=== PATIENT | female | born 1945 | race Caucasian/White ===

== ENCOUNTER → 2017-01-14 | Outpatient (CLI) | payer MEDICARE, OTHER ==
--- NOTE | 2017-01-14 12:53 | RAD ---
EXAM: Left lower extremity venous Doppler. HISTORY: Left lower extremity pain/swelling. COMPARISON: None. FINDINGS: Grayscale and Doppler analysis of the left lower extremity deep venous system was performed with graded compression and augmentation. The common femoral, greater saphenous, superficial femoral, popliteal and calf veins were assessed. There is no evidence of deep venous thrombosis. IMPRESSION: 1. No evidence of deep venous thrombosis.
--- NOTE | 2017-01-14 14:18 | RAD ---
EXAM: Left knee, 2 views HISTORY: Left knee pain. COMPARISON: None. FINDINGS: No fractures are identified. Nonuniform joint space narrowing and osteophytosis indicate moderate to severe medial compartment predominant tricompartmental osteoarthritis. The medial and patellofemoral compartmental joint spaces are mostly effaced. There are small loose bodies within the superomedial gutter measuring up to 4 mm. Osteopenia is at least mild. Alignment is normal. There is a small joint effusion. IMPRESSION: 1. Moderate to severe medial and patellofemoral compartmental predominant osteoarthritis.
== END | disposition home or self-care (01) ==
LOC: LAB 10:29
PROVIDERS: ATTEND Nurse Practitioner Family
DX: M17.12 Unilateral primary osteoarthritis, left knee (principal); M85.88 Other specified disorders of bone density and structure, other site; M79.89 Other specified soft tissue disorders
CPT/HCPCS: 73560; 93971

== ENCOUNTER → 2017-01-25 | Outpatient (CLI) | payer MEDICARE, OTHER ==
--- NOTE | 2017-01-25 10:43 | RAD ---
EXAM: Dual energy x-ray absorptiometry (DEXA). HISTORY: Post menopausal screening. TECHNIQUE: Dual energy x-ray absorptiometry of the lumbar spine and the right hip was performed. Calculation of bone mineral density based on standard deviations above or below the expected young adult normal value (T-score) was completed. FINDINGS: The average bone mineral density associated with L1-L4 is 1.156 g/cm^2, corresponding with a T-score of -0.2. The average total bone mineral density associated with the right hip is 0.766 g/cm^2, corresponding with a T-score of -1.6. No comparison examinations are available. IMPRESSION: 1. Osteopenia. Fracture risk is increased. Note: Definitions established by the World Health Organization: 1. Normal: T-score is -1.0 or above the expected mean for a young adult. 2. Osteopenia: T-score is between -1.0 and -2.5. 3. Osteoporosis: T-score is -2.5 or below.
== END | disposition home or self-care (01) ==
LOC: DXRAD 09:49
PROVIDERS: ATTEND Nurse Practitioner Family
DX: M85.88 Other specified disorders of bone density and structure, other site (principal); Z78.0 Asymptomatic menopausal state
CPT/HCPCS: 77080

== ENCOUNTER → 2017-09-21 | Outpatient (CLI) | payer MEDICARE, OTHER ==
[2017-09-21 16:17] LABS: BASO % 1 % (0-3); EOS # 0.3 x10^3/uL (0.0-0.7); EOS % 6 % (0-3); HEMATOCRIT 42.8 % (36.0-47.0); HEMOGLOBIN 14.4 g/dL (12.0-15.5); LYMPH % 18 % (24-48); MEAN CORPUSCULAR HEMOGLOBIN 31 pg (25-35); MEAN CORPUSCULAR HGB CONC 34 g/dL (31-37); MEAN CORPUSCULAR VOLUME 93 fL (79-100); MONO # 0.5 x10^3/uL (0.0-1.1); MONO % 10 % (0-9); NEUT # 3.4 x10^3uL (1.8-7.7); NEUT % 65 % (31-73); PLATELET COUNT 245 x10^3/uL (140-400); RED BLOOD COUNT 4.62 x10^6/uL (3.50-5.40); RED CELL DISTRIBUTION WIDTH 14.9 % (11.5-14.5); WHITE BLOOD COUNT 5.2 x10^3/uL (4.0-11.0)
[2017-09-21 16:29] LABS: ALBUMIN 3.5 g/dL (3.4-5.0); ALBUMIN/GLOBULIN RATIO 1.1 (1.0-1.7); CALCIUM 9.8 mg/dL (8.5-10.1); GFR 54.7; POTASSIUM 3.6 mmol/L (3.5-5.1); TOTAL BILIRUBIN 0.5 mg/dL (0.2-1.0); TOTAL PROTEIN 6.7 g/dL (6.4-8.2)
== END | disposition home or self-care (01) ==
LOC: LAB 15:47
PROVIDERS: ATTEND Nurse Practitioner
DX: I48.91 Unspecified atrial fibrillation (principal)
CPT/HCPCS: 36415; 80053; 83735; 84436; 84443; 85025

== ENCOUNTER → 2019-08-07 | Outpatient (CLI) | payer MEDICARE, OTHER ==
--- NOTE | 2019-08-07 13:55 | RAD ---
WRIST 3V RIGHT 08/07/2019 12:00 AM INDICATION: Wrist pain COMPARISON: None available. TECHNIQUE: 3 views of the right wrist are provided. FINDINGS/ IMPRESSION: 1. Mildly displaced fracture of the radial styloid process. There is adjacent soft tissue swelling. 2. Mildly displaced fracture involving the scaphoid waist. 3. Moderate joint space narrowing involving the first metacarpal joint with subcortical sclerosis and marginal osteophytosis compatible with moderate osteoarthrosis. Electronically signed by: Angelica Duenas MD (08/07/2019 1:52 PM) [id number]
--- NOTE | 2019-08-07 14:00 | RAD ---
KNEE BILAT 2V 08/07/2019 12:00 AM INDICATION: Knee pain after fall COMPARISON: Left knee radiograph 01/14/2017 TECHNIQUE: 2 views the right and 2 views of the left knee are provided. FINDINGS/ IMPRESSION: 1. Left kidney: There is moderate joint space narrowing involving the medial femorotibial joint space with marginal osteophytosis compatible with moderate osteoarthrosis. There is mild to moderate lateral femorotibial joint space narrowing with marginal osteophytosis compatible with moderate osteoarthrosis. There is advanced patellofemoral joint space narrowing with marginal osteophytosis compatible with advanced patellofemoral osteoarthrosis. Small knee joint effusion. No acute fracture or dislocation. 2. Right kidney: Mild to moderate medial and mild lateral femorotibial joint space narrowing compatible with mild to moderate osteoarthrosis. There is moderate to advanced patellofemoral osteoarthrosis with joint space narrowing, subcortical sclerosis and marginal osteophytosis. No significant knee joint effusion. No acute fractures identified. Electronically signed by: Angelica Duenas MD (08/07/2019 1:57 PM) [id number]
== END | disposition home or self-care (01) ==
LOC: RAD 11:55
PROVIDERS: ATTEND Physician Assistant
DX: S52.511A Displaced fracture of right radial styloid process, initial encounter for closed fracture (principal); S62.001A Unspecified fracture of navicular [scaphoid] bone of right wrist, initial encounter for closed fracture; M79.89 Other specified soft tissue disorders; M17.0 Bilateral primary osteoarthritis of knee; M25.431 Effusion, right wrist; M25.462 Effusion, left knee; M25.461 Effusion, right knee; X58.XXXA Exposure to other specified factors, initial encounter; Y93.89 Activity, other specified; Y92.89 Other specified places as the place of occurrence of the external cause; Y99.8 Other external cause status
CPT/HCPCS: 73110; 73560

== ENCOUNTER → 2019-11-20 | Outpatient (CLI) | payer MEDICARE, OTHER ==
--- NOTE | 2019-11-22 17:39 | RAD ---
DATE: 11/20/2019 3:15 PM EXAM: DIGITAL SCREEN BILAT W/CAD HISTORY: Screening COMPARISON: 11/07/18 Bilateral CC and MLO views of the breasts were performed. Bilateral breast tomosynthesis was performed in CC and MLO projections. This study was interpreted with the benefit of Computerized Aided Detection (CAD). FINDINGS: Breast Density: HETERO The breast parenchyma Is heterogeneously dense, which could reduce sensitivity of mammography. Breast parenchyma level C No suspicious masses, microcalcifications or architectural distortion is present to suggest malignancy in either breast. The visualized axillae are unremarkable. IMPRESSION: No mammographic evidence of malignancy. BI-RADS CATEGORY: 1 NEGATIVE RECOMMENDED FOLLOW-UP: 12M 12 MONTH FOLLOW-UP Annual screening mammography is recommended, unless clinically indicated sooner based on symptoms or change in physical exam. PQRS compliance statement: Patient information was entered into a reminder system with a target due date for the next mammogram. Mammography is a sensitive method for finding small breast cancers, but it does not detect them all and is not a substitute for careful clinical examination. A negative mammogram does not negate a clinically suspicious finding and should not result in delay in biopsying a clinically suspicious abnormality. "Our facility is accredited by the [employer] Mammography [employer]."
== END | disposition home or self-care (01) ==
LOC: MAMMO 15:10
PROVIDERS: ATTEND Physician Assistant Medical
DX: Z12.31 Encounter for screening mammogram for malignant neoplasm of breast (principal)
CPT/HCPCS: 77067

== ENCOUNTER → 2020-02-19 | Outpatient (CLI) | payer MEDICARE, OTHER ==
--- NOTE | 2020-02-19 14:31 | RAD ---
EXAM: DUAL ENERGY X-RAY ABSORPTIOMETRY (DEXA). HISTORY: Postmenopausal screening. FINDINGS: The lowest measured T-score is -2.2 in the right femoral neck, based on a bone mineral dens ity of 0.662 g/cm^2. Refer to the worksheets for full detail. In comparison with the prior study of 01/25/2017, average bone mineral density at the lumbar spine collier s changed -2.9%, while the average density at the right hip has changed -4.9%. IMPRESSION: Low bone mass. Bone mineral density yields a T-score between -1.0 and -2.5. Fracture risk is increase d. FRAX was not calculated. METHODOLOGY: Dual energy x-ray absorptiometry was performed to measure bone mineral density. The foll owing analysis is based on the 2019 Official Positions of the International Society for Clinical Dens itometry: Measurements of the hips and the average of L1-L4 are preferred. When the spine and/or hip cannot be feasibly measured or interpreted, or in the setting of hyperparathyroidism, distal radial bone minera l density may be measured. The lumbar spine T-score is based on the average bone mineral density of L1-L4. In the setting of art ifact or anatomic abnormality, some lumbar levels may be excluded, and the remaining levels used for calculation. A single lumbar level is not used for diagnosis, and if only a single level is available for assessment, another anatomic site will be used to assign a diagnosis. The hip T-score is based on the bone mineral density measurement of the femoral neck or total proxima l femur of either side, whichever is lowest. Bilateral mean values are not used for diagnosis. The forearm T-score is derived from 33% of the distal radius of the nondominant forearm. For postmenopausal and perimenopausal women, and men age 50 or older, of all ethnic groups, T-scores are calculated through comparison of the current measurement with the NHANES III database standard fo r females aged 20-29 years. The lowest T-score of the evaluated anatomic sites is used to a ssign a diagnosis based on the World Health Organization densitometric classification. In premenopausal females and males younger than age 50, a Z-score is calculated based on population s pecific reference data for patient sex and self-reported ethnicity. Electronically signed by: Kalie Quintana MD (02/19/2020 2:29 PM) [facility]
== END ==
LOC: DXRAD 13:09
PROVIDERS: ATTEND Physician Assistant Medical
DX: Z01.419 Encounter for gynecological examination (general) (routine) without abnormal findings (principal); M81.0 Age-related osteoporosis without current pathological fracture; E55.9 Vitamin D deficiency, unspecified; M85.80 Other specified disorders of bone density and structure, unspecified site; N95.8 Other specified menopausal and perimenopausal disorders
CPT/HCPCS: 77080

== ENCOUNTER → 2020-11-20 | Outpatient (CLI) | payer MEDICARE, OTHER ==
--- NOTE | 2020-11-20 14:50 | RAD ---
EXAM: Bilateral digital screening mammogram with tomosynthesis. HISTORY: 74-year-old female presents for screening mammography. TECHNIQUE: Full-field digital craniocaudal and mediolateral oblique 2D and 3D tomosynthesis images of both breasts are obtained for evaluation. Computer aided detection was applied. COMPARISON: 11/20/2019 BREAST PARENCHYMAL DENSITY: Level C - Heterogeneously dense. FINDINGS: There is no new suspicious mass, microcalcification or region of architectural distortion. There are stable areas of benign asymmetry and nodularity within both breasts. IMPRESSION: BI-RADS Category 2: Benign finding(s). RECOMMENDATION: Annual mammography is recommended. If your mammogram demonstrates that you have dense breast tissue, which could hide abnormalities, and if you have other risk factors for breast cancer that have been identified, you might benefit from s upplemental screening tests that may be suggested by your ordering physician. Dense breast tissue, i n and of itself, is a relatively common condition. This information is not provided to cause undue c oncern, but rather to raise your awareness and to promote discussion with your physician regarding th e presence of other risk factors, in addition to dense breast tissue. A report of your mammography re sults will be sent to you and your physician. You should contact your physician if you have any ques tions or concerns regarding this report. Mammography is a sensitive method for finding small breast cancers, but it does not detect them all a nd is not a substitute for careful clinical examination. A negative mammogram does not negate a clin ically suspicious finding and should not result in delay in biopsying a clinically suspicious abnorma lity. PQRS compliance statement - Patient information was entered into a reminder system with a target due date for the next mammogram. "Our facility is accredited by the [employer] Mammography Program." Electronically signed by: Belkys Higuera MD (11/20/2020 2:48 PM) [id number]
== END ==
LOC: MAMMO 13:47
PROVIDERS: ATTEND Physician Assistant Medical
DX: Z12.31 Encounter for screening mammogram for malignant neoplasm of breast (principal)
CPT/HCPCS: 77063; 77067